=== PATIENT | male | born 1980 | race Caucasian/White ===

== ENCOUNTER → 2021-11-15 | Outpatient (CLI) | payer OTHER ==
--- NOTE | 2021-11-15 16:00 | CONS ---
CONSULTATION 11/15/2021: 41-year-old gentleman has [facility] for possible obstructive sleep apnea-hypopnea syndrome. HISTORY OF PRESENT ILLNESS/SLEEP-WAKE EVALUATION: SLEEP SCHEDULE: Patient usual sleep schedule from 2:00 am until 9 a.m. basically 7 days a week. FALLING ASLEEP: Sometimes he has problems with falling asleep, although no TV in bedroom. DURING SLEEP: He usually sleeps on the side position. He has very loud snoring, witnessed episodes of stopped breathing during sleep. He wakes up from sleep 3 times with episodes of gasping for air. Usually no nocturia. No history of hypnagogic hallucinations, sleep paralysis or cataplexy. DURING THE DAY/SLEEP WAKE EVALUATION: In the morning, the patient wakes up tired, has difficulties to pay attention, worry about his sleep, has problems with concentration, irritability, depression, anxiety. [place] Sleepiness Scale increased to 11. The patient usually does not take any naps. He drinks about 6 coffee a day. Patient had sleep study about 10 years ago in another institution, was told about having obstructive sleep apnea, never has been treated. PAST MEDICAL HISTORY: Positive for low testosterone level, herniated disk on the back and back pain. ALLERGIES: ASTHMA. PAST SURGICAL HISTORY: None. SOCIAL HISTORY: No using alcohol at the present time. MEDICATIONS: Testosterone every 2 weeks, albuterol as necessary, needs very rarely. FAMILY HISTORY: The patient was adopted. No information. REVIEW OF SYSTEMS: Multiple awakenings from sleep, sleepiness during the day, snoring. PHYSICAL EXAMINATION: GENERAL: Patient in no distress. BP 132/82, HR 79, height 5 feet 10-3/4 inches, weight 231 pounds, body mass index 32.4, temperature 97.7, oxygen saturation at room air 97%. Oropharynx: Wide pillars. Neck 17-1/4 inches in circumference. NECK: Supple, no JVD. Thyroid is not palpable. LUNGS: Clear to percussion and to auscultation. Good air exchange. No wheezing or rhonchi. HEART: S1, S2 regular. No murmurs, gallops, or rubs. ABDOMEN: Soft and nontender. Bowel sounds are present. No organomegaly appreciated. EXTREMITIES: No clubbing or cyanosis. MAINTENANCE DEPARTMENT MANAGER: Awake, alert, and oriented X3. Cranial nerves 2 to 7 intact. There is no fasciculation or atrophy. noted. No focal deficits observed. IMPRESSION: 1. Snoring, witnessed episodes of stopped breathing during sleep, small oropharyngeal air space, wide neck, 17-1/4 inches in circumference, sleepiness, [place] Sleepiness Scale increased to 11, history of obstructive sleep apnea in the past; obstructive sleep apnea-hypopnea syndrome. 2. Mild obesity, BMI 32.4. 3. Low testosterone level and testosterone replacement. 4. History of herniated discs of the back, back problems, back pain. 5. ALLERGIES. 6. History of asthma. PLAN: 1. Polysomnography for evaluation of patient's breathing during sleep. 2. CPAP/BiPAP titration if sleep study confirms obstructive sleep apnea-hypopnea syndrome. 3. Preferable position during sleep on the side. 4. No driving if patient feels any sleepiness. 5. I will see patient for follow up visit to explain results of testing and following plan. Thank you very much for referring this patient for consultation. Sincerely, Lionel Forrest MD, PhD, FAASM Diplomat of [employer] Sleep Medicine Board of [employer] [place] [employer] [facility] [place] MMODL / IJN: [id number] /
== END | disposition home or self-care (01) ==
LOC: SLEEP 13:17
PROVIDERS: ATTEND Internal Medicine
DX: G47.33 Obstructive sleep apnea (adult) (pediatric) (principal); E66.9 Obesity, unspecified; E29.1 Testicular hypofunction; T78.40XA Allergy, unspecified, initial encounter; J45.909 Unspecified asthma, uncomplicated; M54.9 Dorsalgia, unspecified; Z87.39 Personal history of other diseases of the musculoskeletal system and connective tissue; Z68.32 Body mass index [BMI] 32.0-32.9, adult
CPT/HCPCS: 99211